=== PATIENT | male | born 1995 ===

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

== ENCOUNTER → 2017-01-08 | Outpatient (CLI) | payer BC ==
[2017-01-08 16:22] LABS: INR 2.1 (0.9-1.1); PROTHROMBIN TIME (PATIENT) 23.5 SECONDS (9.0-12.0)
== END | disposition home or self-care (01) ==
LOC: C.LABSPEC 16:03 → EDSTATUS 01-16 11:59
PROVIDERS: ATTEND Nurse Practitioner Pediatrics
DX: Q23.0 Congenital stenosis of aortic valve (principal)

== ENCOUNTER → 2017-01-27 | Outpatient (CLI) | payer BC ==
[2017-01-27 19:05] LABS: INR 2.2 (0.9-1.1); PROTHROMBIN TIME (PATIENT) 24.8 SECONDS (9.0-12.0)
== END | disposition home or self-care (01) ==
LOC: C.LABSPEC 17:25 → EDSTATUS 02-10 12:10
PROVIDERS: ATTEND Nurse Practitioner Pediatrics
DX: Q23.0 Congenital stenosis of aortic valve (principal)

== ENCOUNTER → 2017-02-18 | Outpatient (CLI) | payer BC ==
[2017-02-18 15:25] LABS: INR 1.9 (0.9-1.1); PROTHROMBIN TIME (PATIENT) 20.8 SECONDS (9.0-12.0)
== END | disposition home or self-care (01) ==
LOC: C.LABSPEC 14:51 → EDSTATUS 02-24 11:39
PROVIDERS: ATTEND Nurse Practitioner Pediatrics
DX: Q23.0 Congenital stenosis of aortic valve (principal)

== ENCOUNTER → 2017-02-23 | Outpatient (CLI) | payer BC ==
[2017-02-23 15:19] LABS: INR 1.8 (0.9-1.1); PROTHROMBIN TIME (PATIENT) 19.5 SECONDS (9.0-12.0)
== END | disposition home or self-care (01) ==
LOC: C.LABSPEC 14:35
PROVIDERS: ATTEND Nurse Practitioner Pediatrics
DX: Q23.0 Congenital stenosis of aortic valve (principal)

== ENCOUNTER → 2017-03-02 | Outpatient (CLI) | payer BC ==
[2017-03-02 17:08] LABS: PROTHROMBIN TIME (PATIENT) 21.6 SECONDS (9.0-12.0)
== END | disposition home or self-care (01) ==
LOC: C.LABSPEC 16:22 → EDSTATUS 03-03 12:53
PROVIDERS: ATTEND Nurse Practitioner Pediatrics
DX: Q23.0 Congenital stenosis of aortic valve (principal)

== ENCOUNTER → 2017-03-09 | Outpatient (CLI) | payer BC ==
[2017-03-09 14:33] LABS: PROTHROMBIN TIME (PATIENT) 21.5 SECONDS (9.0-12.0)
== END | disposition home or self-care (01) ==
LOC: C.LABSPEC 14:14 → EDSTATUS 03-10 12:43
PROVIDERS: ATTEND Nurse Practitioner Pediatrics
DX: Q23.0 Congenital stenosis of aortic valve (principal)

== ENCOUNTER → 2017-03-24 | Outpatient (CLI) | payer BC ==
[2017-03-24 17:34] LABS: INR 1.7 (0.9-1.1)
== END | disposition home or self-care (01) ==
LOC: C.LABSPEC 12:48 → EDSTATUS 03-26 12:47
PROVIDERS: ATTEND Nurse Practitioner Pediatrics
DX: Q23.0 Congenital stenosis of aortic valve (principal)

== ENCOUNTER → 2017-04-20 | Outpatient (CLI) | payer BC ==
[2017-04-20 11:31] LABS: INR 2.5 (0.9-1.1)
== END | disposition home or self-care (01) ==
LOC: C.LABSPEC 11:02
PROVIDERS: ATTEND Nurse Practitioner Pediatrics
DX: Q23.0 Congenital stenosis of aortic valve (principal)

== ENCOUNTER → 2017-05-20 | Outpatient (CLI) | payer BC ==
[2017-05-20 14:06] LABS: INR 2.5 (0.9-1.1)
== END | disposition home or self-care (01) ==
LOC: C.LABSPEC 13:43
PROVIDERS: ATTEND Nurse Practitioner Pediatrics
DX: Q23.0 Congenital stenosis of aortic valve (principal)

== ENCOUNTER → 2017-05-27 | Outpatient (CLI) | payer BC, OTHER ==
[2017-05-27 14:58] LABS: INR 1.9 (0.9-1.1)
== END | disposition home or self-care (01) ==
LOC: C.LABSPEC 14:35
PROVIDERS: ATTEND Nurse Practitioner Pediatrics
DX: Q23.0 Congenital stenosis of aortic valve (principal)

== ENCOUNTER → 2017-06-03 | Outpatient (CLI) | payer OTHER ==
[2017-06-03 14:49] LABS: INR 2.2 (0.9-1.1)
== END | disposition home or self-care (01) ==
LOC: C.LABSPEC 13:37
PROVIDERS: ATTEND Nurse Practitioner Pediatrics
DX: Q23.0 Congenital stenosis of aortic valve (principal)

== ENCOUNTER → 2017-06-11 | Outpatient (CLI) | payer OTHER ==
[2017-06-11 15:18] LABS: INR 2.5 (0.9-1.1)
== END | disposition home or self-care (01) ==
LOC: C.LABSPEC 14:58
PROVIDERS: ATTEND Nurse Practitioner Pediatrics
DX: Q23.0 Congenital stenosis of aortic valve (principal)

== ENCOUNTER → 2017-06-24 | Outpatient (CLI) | payer OTHER ==
[2017-06-24 14:36] LABS: INR 2.5 (0.9-1.1)
== END | disposition home or self-care (01) ==
LOC: C.LABSPEC 14:21 → EDSTATUS 06-26 11:48
PROVIDERS: ATTEND Nurse Practitioner Pediatrics
DX: Q23.0 Congenital stenosis of aortic valve (principal)

== ENCOUNTER → 2017-07-06 | Outpatient (CLI) | payer OTHER | END | disposition home or self-care (01) | LOC: C.LABSPEC 16:41 | PROVIDERS: ATTEND Nurse Practitioner Pediatrics | DX: Q23.0 Congenital stenosis of aortic valve (principal) ==

== ENCOUNTER → 2017-07-20 | Outpatient (CLI) | payer OTHER ==
[2017-07-20 14:29] LABS: INR 2.4 (0.9-1.1)
== END | disposition home or self-care (01) ==
LOC: C.LABSPEC 14:10 → EDSTATUS 07-23 11:58
PROVIDERS: ATTEND Nurse Practitioner Pediatrics
DX: Q23.0 Congenital stenosis of aortic valve (principal)

== ENCOUNTER → 2017-08-03 | Outpatient (CLI) | payer OTHER ==
[2017-08-03 17:36] LABS: INR 2.6 (0.9-1.1)
== END | disposition home or self-care (01) ==
LOC: C.LABSPEC 17:13
PROVIDERS: ATTEND Nurse Practitioner Pediatrics
DX: Q23.0 Congenital stenosis of aortic valve (principal)

== ENCOUNTER → 2017-08-19 | Outpatient (CLI) | payer OTHER ==
[2017-08-19 15:09] LABS: INR 2.8 (0.9-1.1)
== END | disposition home or self-care (01) ==
LOC: C.LABSPEC 14:48
PROVIDERS: ATTEND Nurse Practitioner Pediatrics
DX: Q23.0 Congenital stenosis of aortic valve (principal)